=== PATIENT | female | born 1935 | race Caucasian/White ===

== ENCOUNTER 2017-04-06 10:43 | Outpatient (CLI) | payer MEDICARE | END 2017-04-06 10:44 | disposition home or self-care (01) | LOC: BICMAMMO 10:43 | PROVIDERS: ATTEND Internal Medicine Medical Oncology | DX: Z12.31 Encounter for screening mammogram for malignant neoplasm of breast (principal); Z13.820 Encounter for screening for osteoporosis; R92.1 Mammographic calcification found on diagnostic imaging of breast; M85.88 Other specified disorders of bone density and structure, other site; Z85.3 Personal history of malignant neoplasm of breast; Z80.3 Family history of malignant neoplasm of breast | CPT/HCPCS: 77063; 77067; 77080 ==

== ENCOUNTER 2018-04-12 14:12 | Outpatient (CLI) | payer MEDICARE ==
--- NOTE | 2018-04-12 15:57 | BD ---
DEXA BONE SCAN: HISTORY: Osteopenia. Age-related osteoporosis. FINDINGS: DEXA bone scan is performed using a hologic bone mineral density unit. Lumbar Spine: BMD (g/cm2) L1 0.89 T-Score: -0.9 Z-Score: 1.5 L2 0.89 T-Score: -1.2 Z-Score: 1.5 L3 0.97 T-Score: -1.0 Z-Score: 1.9 L4 0.92 T-Score: -1.3 Z-Score: 1.7 L1-L4 0.92 T-Score: -1.2 Z-Score: 1.7 Left Hip: Femoral Neck: 0.62 T-Score: -2.0 Z-Score: 0.4 Total Femur: 0.72 T-Score: -1.8 Z-Score: 0.5 Impression: 1. Findings compatible with osteopenia. The patient has a mild increased risk of osteoporotic fract ures. 2. The patient has a major osteoporotic fracture risk of 12% and hip fracture risk of 4% (FRAX score ). POS: [facility]
== END 2018-04-12 14:13 | disposition home or self-care (01) ==
LOC: BICMAMMO 14:12
PROVIDERS: ATTEND Internal Medicine Medical Oncology
DX: Z12.31 Encounter for screening mammogram for malignant neoplasm of breast (principal); M85.80 Other specified disorders of bone density and structure, unspecified site; N95.9 Unspecified menopausal and perimenopausal disorder; Z80.3 Family history of malignant neoplasm of breast; Z85.3 Personal history of malignant neoplasm of breast
CPT/HCPCS: 77063; 77067; 77080

== ENCOUNTER 2019-01-07 11:14 | Inpatient (IN) | payer MEDICARE ==
[2019-01-07 12:11] LABS: #Lymphocytes 0.5 thou/uL (1.20-3.40); #Monocytes 0.2 thou/uL (0.11-0.59); #Neutrophils 2.6 thou/uL (1.40-6.50); %Basophils 0.5 % (0.0-1.0); %Eosinophils 0.3 % (0.0-10.0); %Lymphocytes 13.9 % (21.0-51.0); %Monocytes 7.1 % (0.0-10.0); %Neutrophils 78.3 % (42.0-75.0); Hemoglobin 14.4 g/dL (12.0-16.0); MDiff Complete? YES; Mean Corpuscular Volume 84.8 fL (78.0-98.0); Mean Platelet Volume 8.4 fL (7.4-10.4); Platelet Count 89 thou/uL (130-400); Platelet Morphology Comment Appears Decreased; RBC Distribution Width 14.5 % (11.5-14.5); RBC Morphology Normal; Red Blood Cell (RBC) Count 5.15 mill/uL (4.20-5.40); Small Platelets SLIGHT; White Blood Cell (WBC) Count 3.4 thou/uL (4.8-10.8)
[2019-01-07 12:20] LABS: ALT (SGPT) 23 U/L (8-55); AST (SGOT) 43 U/L (5-34); Albumin 3.3 g/dL (3.4-4.8); Alkaline Phosphatase 73 U/L (40-110); Anion Gap 9 mmol/L (10-20); BUN (Urea Nitrogen) 15 mg/dL (9.8-20.1); Bilirubin, Total 0.5 mg/dL (0.2-1.2); Calc. Creatinine Clearance 0 mL/min (70-130); Calcium 8.1 mg/dL (7.8-10.44); Carbon Dioxide 24 mmol/L (23-31); Chloride 103 mmol/L (98-107); Estimated GFR-MDRD 87; Globulin 2.5 g/dL (2.4-3.5); Glucose 112 mg/dL (83-110); Potassium 3.4 mmol/L (3.5-5.1); Protein, Total 5.8 g/dL (6.0-8.3); Sodium 133 mmol/L (136-145)
[2019-01-07] MEDS ORDERED: Amiodarone 450 MG, Admixture Fee 1 EACH in Dextrose 5% in Water 250 ML IVPB SCH (12:30)
[2019-01-07] MEDS ORDERED: Amiodarone 150 MG, Admixture Fee 1 EACH in Dextrose 5% in Water 100 ML IVPB SCH (12:30)
[2019-01-07 12:41] LABS: INR-International Normal Ratio 1.2; PTT 34.6 SEC (22.9-36.1); Prothrombin Time 14.8 SEC (12.0-14.7)
--- NOTE | 2019-01-07 13:50 | RAD ---
CHEST 1 VIEW: Date: 01/07/19 HISTORY: Weakness, dizziness, generalized malaise. History of atrial fibrillation. COMPARISON: 08/03/13. FINDINGS: Heart size is within normal limits. Minimal increased markings noted bilaterally, particularly in the infrahilar regions. No confluent pneumonia. IMPRESSION: Minimal increased nonspecific markings in the lung bases, possibilities would include that of chronic change, minimal subsegmental atelectasis, or very minimal pneumonitis. No confluent pneumonia. Ather osclerosis of aorta. POS: [facility]
[2019-01-07 14:02] LABS: Bacteria/HPF None Seen HPF (None Seen); Bilirubin Negative (Negative); Blood, Urine 2+ (Negative); Clarity Clear (Clear); Glucose, Urine (Dipstick) Normal (Negative); Leukocyte Negative Leu/uL (Negative); Nitrite Negative (Negative); Protein, Urine (Dipstick) 50 mg/dL (Neg-Trace); Squamous Epithelial 0-3 HPF (0-3); Urobilinogen Normal mg/dL (Less than 2); WBC/HPF 0-3 HPF (0-3)
[2019-01-07] MEDS ORDERED: Vancomycin HCl 1.5 GM in Sodium Chloride 0.9% 250 ML 300 ML IVPB SCH (15:00)
[2019-01-07] MEDS ORDERED: Piperacillin/Tazobactam 4.5 GM VIAL ONE (15:06)
[2019-01-07] MEDS ORDERED: Sodium Chloride 0.9% 100 ML ONE (15:06)
--- NOTE | 2019-01-07 15:40 | PDOC.FPRHP ---
- History of Present Illness Chief Complaint: weakness, fever History of Present Illness: History provided by and patient. reports pt hasn't eaten since Monday and was feeling weak. This morning helped patient get out of bed and she collapsed to her knees due to weakness. Says she has been sweating profusely and felt feverish, no recorded temp. Pt says she has simply lost her appetite. Has been able to drink water. + lightheadedness at times, moreso w/ bending over and getting up quickly. + constipation chronically, + urinary incontinence chronically. No sick contacts. PCP: recently retired from [place], [place]. Sees health care sanitary technician Dr. Velasquez and neurologist for dementia. reports she has been having "bouts" of forgetfulness. ED Course: Vanc, zosyn, amiodarone gtt started. - Allergies/Adverse Reactions Allergies Allergy/AdvReac Type Severity Reaction Status Date / Time alprazolam Allergy Verified 08/04/13 01:08 hydrocodone Allergy Verified 08/04/13 01:08 valacyclovir HCl Allergy Verified 08/04/13 01:07 [From Valtrex] zolpidem [Zolpidem] Allergy Verified 08/04/13 01:08 - Home Medications Medication Instructions Recorded Confirmed Type Acetaminophen [Tylenol Regular 500 mg PO Q6H PRN 01/07/19 01/07/19 History Strength] Levothyroxine [Synthroid] 75 mcg PO DAILY 01/07/19 01/07/19 History Memantine HCl [Namenda] 10 mg PO BID 01/07/19 01/07/19 History Midodrine HCl 5 mg PO TID 01/07/19 01/07/19 History - History PMHx: - Hypothyroidism - Breast cancer - Hx of "kidney infection" requiring hospitalization - A-fib diagnosed 5 years ago PSHx: - L Mastectomy - R Hip fracture repair - Appendectomy - Cholecystectomy FHx: - Mother had breast cancer. Social: - . Lives w/ of 47 years and 1 son at home. - Never smoker. smokes. - Denies alcohol use. Denies drug use. - Review of Systems General: reports: fever/chills, weight/appetite/sleep changes (no appetite) ENT: denies: nasal congestion, rhinorrhea Respiratory: denies: cough, congestion, shortness of breath Cardiovascular: denies: chest pain, edema Gastrointestinal: reports: constipation, abdominal pain. denies: nausea, vomiting, diarrhea, GI bleeding Genitourinary: reports: incontinence (some urinary hesitancy). denies: dysuria , discharge Skin: denies: rashes, jaundice Musculoskeletal: denies: pain, swelling Neurological: reports: weakness - Vital signs BP: 102/74 HR: 79 RR: 24 Afebrile. Pox: 97% on RA - Physical Exam Constitutional: NAD, awake, alert and oriented HEENT: normocephalic and atraumatic, PERRLA, EOMI, conjunctiva clear, grossly normal vision, grossly normal hearing, normal nasal mucosa, MMM, oropharynx clear, good dention Neck: supple, trachea midline, no thyromegaly Heart: normal S1/S2, pulses present, other (irregular rhythm) Lungs: CTAB, no respiratory distress Abdomen: soft, non-tender, bowel sounds present, no masses/distention, no hernias Musculoskeletal: normal structure, normal tone, ROM grossly normal Neurological: no focal deficit, CN II-XII intact Skin: no rash/lesions, capillary refill <2 seconds, no jaundice Heme/Lymphatic: no unusual bruising or bleeding, no purpura, no petechia, no LAD Psychiatric: normal mood and affect, good judgment and insight FMR H&P: Results - Labs Result Diagrams: 01/08/19 05:01 01/08/19 05:01 Lab results: WBC 3.4 thou/uL (4.8-10.8) L 01/07/19 11:40 Hgb 14.4 g/dL (12.0-16.0) 01/07/19 11:40 Hct 43.7 % (36.0-47.0) 01/07/19 11:40 MCV 84.8 fL (78.0-98.0) 01/07/19 11:40 Plt Count 89 thou/uL (130-400) L 01/07/19 11:40 Neutrophils % 78.3 % (42.0-75.0) H 01/07/19 11:40 Sodium 133 mmol/L (136-145) L 01/07/19 11:40 Potassium 3.4 mmol/L (3.5-5.1) L 01/07/19 11:40 Chloride 103 mmol/L (98-107) 01/07/19 11:40 Carbon Dioxide 24 mmol/L (23-31) 01/07/19 11:40 BUN 15 mg/dL (9.8-20.1) 01/07/19 11:40 Creatinine 0.65 mg/dL (0.6-1.1) 01/07/19 11:40 Glucose 112 mg/dL (83-110) H 01/07/19 11:40 Lactic Acid 2.4 mmol/L (0.5-2.2) H 01/07/19 11:40 Calcium 8.1 mg/dL (7.8-10.44) 01/07/19 11:40 Total Bilirubin 0.5 mg/dL (0.2-1.2) 01/07/19 11:40 AST 43 U/L (5-34) H 01/07/19 11:40 ALT 23 U/L (8-55) 01/07/19 11:40 Alkaline Phosphatase 73 U/L (40-110) 01/07/19 11:40 Serum Total Protein 5.8 g/dL (6.0-8.3) L 01/07/19 11:40 Albumin 3.3 g/dL (3.4-4.8) L 01/07/19 11:40 Urine Ketones 20 mg/dL (Negative) A 01/07/19 13:40 Urine Blood 2+ (Negative) A 01/07/19 13:40 Urine Nitrite Negative (Negative) 01/07/19 13:40 Ur Leukocyte Esterase Negative Leonora/uL (Negative) 01/07/19 13:40 Urine RBC 7-10 HPF (0-3) A 01/07/19 13:40 Urine WBC 0-3 HPF (0-3) 01/07/19 13:40 Ur Squamous Epith Cells 0-3 HPF (0-3) 01/07/19 13:40 Urine Bacteria None Seen HPF (None Seen) 01/07/19 13:40 - Radiology Interpretation Chest x-ray Status: image reviewed by me, report reviewed by me (normal, minimal changes) FMR H&P: A/P - Problem List (1) Sepsis Current Visit: Yes Status: Acute Code(s): A41.9 - SEPSIS, UNSPECIFIED ORGANISM (2) Atrial fibrillation with RVR Current Visit: Yes Status: Acute Code(s): I48.91 - UNSPECIFIED ATRIAL FIBRILLATION (3) Hypothyroidism Current Visit: Yes Status: Acute Code(s): E03.9 - HYPOTHYROIDISM, UNSPECIFIED - Plan 83-year-old female w/ history of a-fib being admitted for: A-fib w/ RVR - consulted Felipe of cardiology, will see pt, appreciate recs - pt w/ history of a-fib diagnosed 5 years ago, not on any antiarrhythmics. Histological Illustrator Brenda recently stopped her eliquis. - Rate controlled on amiodarone drip - Monitor on telemetry SIRS, possibly 2/2 upper respiratory infection - Meets SIRS criteria w/ tachycardia and WBC of 3.4. However, her tachycardia could be the result of a-fib w/ RVR, or her a-fib w/ RVR could have been exacerbated by acute infection - CXR shows minimal possible pneumonitis vs atelectasis, no focal consolidation - We will cover her w/ zosyn. No particular concern for MRSA at this point in time. Dementia - Pt has started seeing neurology and seems to have slowly progressing dementia - Continue home memantine Chronic hypotension - pt takes midodrine at home Hypothyroidism - takes levothyroxine 75, continue - TSH low, ordered Free T4 Code: FULL Diet: HH VTE PPx: LVX GI pPx: none Dennise Chicas MD PGY1 Disposition/LOS: Admit to telemetry inpatient. FMR H&P: Upper Level - Plan Date/Time: 01/07/19 0528 PCP: JEANNETTE HPI: This 83 yo F comes in with chief complaint of malaise over the last 3 days. Her is with her and states she is acting about her normal except that she is not eating as much as usual. He has noted subjective fever and also chills over the last few days. Denies N/V/D. Denies cough or SOB. Patient was able to go dancing with over the weekend, was able to do 2 dances. Patient denies CP, SOB, or palpitations. PHYSICAL EXAMINATION: General: NAD, alert and oriented x3 HEENT: PERRLA, EOMI, normal sclera, oropharynx without erythema or exudate Neck: Supple. Full ROM. Heart/Cardiovascular System: RRR, Cap refill < 3 seconds, 2/6 systolic murmur Lungs/Respiratory System: clear to auscultation bilaterally. No increased work of breathing. Room air. Abdomen/Gastro-Intestinal System: no abdominal tenderness, normal bowel sounds, no masses, no organomegaly Extremities: Warm extremities. No cyanosis or edema. Neuro: No gross deficits appreciated. CN 2-12 grossly intact Psychiatry: Awake, Alert and cooperative with exam Skin: No lesions, rashes, or ulcers Musculoskeletal: Full ROM A/P: # Atrial Fibrillation with RVR - Tachycardic mostly in 120s upon arrival, charted to 160s - Currently rate controlled on amio drip, cardiology consulted, appreciate recs - Eliquis was stopped by primary health care sanitary technician - She is on midodrine but no other antiarrhytmics at home # Sepsis 2/2 suspected community acquired PNA - WBC 3.4, LA 2.4->1.0, tachycardic on presentation, subjective fever - Consider gastroenteritis - Denies cough, sob, burning/blood with urination, hx of multiple UTIs - Will check RVP, procal, bcx, ucx - Continue on zosyn for broad spectrum coverage # De-conditioning - PT/OT/rehab screen - Living at home with # Hypothyroidism - TSH currently 0.046, check free t4, could be contributing to afib Fluids: LR Code status: full PPx: Lovenox, SCD Dispo: 1-2 days Addendum - Attending - Attending Attestation Date/Time: 01/08/19 9424 I personally evaluated the patient and discussed the management with Dr. Chicas I agree with the History, Examination, Assessment and Plan documented above with any addition or exceptions noted below- 83 yo female with h/o breast cancer , A-fib, dementia, and hypothyroidism presented with weakness. reports pt hasn't eaten since Monday and was feeling weak. This morning helped patient get out of bed and she collapsed to her knees due to weakness. Says she has been sweating profusely and felt feverish, no recorded temp. Pt says she has simply lost her appetite. Has been able to drink water. + lightheadedness at times, + constipation chronically, + urinary incontinence chronically. No sick contacts. No N/V/D. PMH/PSH/Meds/SH reviewed and agree with resident's documentation. Afebrile P80-103 BP 120/88 RR17 Exam repeated by me and agree with resident's findings. Labs: WBC=3.4, H/H=14.4/43.7, Plt=89, Qa=565, K=3.4, Jt=021, CO2=24, BUN/Cr=15/0.65, Gbdc=365, Trop I<0.010, AST/ALT=43/23, U/A (+) blood, no leukos, no bacteria. A/P: 1) A-fib with RVR- on amiodarone drip with improved HR. admit to tele and continue drip for now. Will check echo. 2) SIRS - blood and urine cultures pending; continue abx for now 3) Hypothyroidism- check TSH and continue home meds. 4) Dementia- continue home emds.
[2019-01-07] MEDS ORDERED: Acetaminophen 650 MG Suppository PR PRN (16:25)
[2019-01-07] MEDS ORDERED: Ondansetron ODT 4 MG TAB PO PRN (16:25)
[2019-01-07] MEDS ORDERED: Ondansetron PF 4 MG/2 ML Vial IVP PRN (16:25)
[2019-01-07] MEDS: Midodrine HCl 5 MG TAB PO SCH (21:59)
[2019-01-07] MEDS: Piperacillin/Tazobactam 3.375 GM in Sodium Chloride 0.9% 100 ML IVPB SCH (21:59)
--- NOTE | 2019-01-07 22:05 | CON ---
DATE OF CONSULTATION: HISTORY OF PRESENT ILLNESS: Marianne Bailey is an 83-year-old white female, who has a history of atrial flutter which developed postoperatively after she had repair of right hip fracture after a fall. She underwent radiofrequency ablation of her atrial flutter. It was also noted that she had left atrial flutter as well. She was placed on Rythmol and saw Dr. Urbina in the office once for followup, but has never returned. This was in 2013. She apparently now follows up with Dr. Gutierrez, vice president education in [place]. There is somewhat conflicting stories that I have available from the patient as well as from the medical record. Apparently, the patient has dementia and states that she fell while trying to go up the steps. Her gave the history that she tried to get out of bed and fell to her knees. She felt feverish, was sweating , and brought to the emergency room. She was found to be in atrial fibrillation with fast ventricular response and was admitted for sepsis rule out. She denies any chest discomfort or shortness of breath. The patient states she was on Eliquis until 1 month ago and then it was stopped, however, she is uncertain why. PAST MEDICAL HISTORY: Atrial fibrillation, hypothyroidism, breast cancer. PAST SURGICAL HISTORY: Radiofrequency ablation of typical atrial flutter, left mastectomy, right hip ORIF, appendectomy, and cholecystectomy. MEDICATIONS: 1. Synthroid 75 mcg daily. 2. Namenda 10 mg b.i.d. 3. Midrin 5 mg t.i.d. ALLERGIES: HYDROCODONE, ALPRAZOLAM, ZOLPIDEM, AND VALTREX. SOCIAL HISTORY: She does not smoke, her does. She does not drink. REVIEW OF SYSTEMS: Somewhat unreliable with her dementia. PHYSICAL EXAMINATION: VITAL SIGNS: Blood pressure 135/56, pulse is 69. HEENT: PERRL. NECK: Supple. CHEST: Clear. CARDIAC: S1 and S2 normal without any S3, S4, murmurs, or rubs. ABDOMEN: Normal bowel sounds without tenderness or organomegaly. EXTREMITIES: Revealed no clubbing, cyanosis, or edema. NEUROLOGICAL: Intact except for her dementia. LABORATORY DATA: EKG reveals atrial fibrillation with rapid ventricular response of 142 per minute. CBC is unremarkable except for platelet count of 89,000, white count of 3400. TSH 0.468, free T4 is somewhat elevated at 1.65. Troponin I is normal. Sodium 133, potassium 3.4, chloride 103, carbon dioxide 24, BUN 15, creatinine 0.65. Urinalysis reveals 0-3 wbc's, no bacteria. IMPRESSION: 1. Atrial fibrillation with fast ventricular response. It is unclear if she has paroxysmal atrial fibrillation or chronic atrial fibrillation. The patient states she does not think she had atrial fibrillation all the time. Approximately 1 month ago, Eliquis of unknown dose was discontinued. 2. History of atrial flutter ablation in 2003. 3. Hypothyroidism, possibly over replaced at this time. 4. Possible sepsis syndrome. 5. Dementia. PLAN: The patient currently is on amiodarone drip and has been started on vancomycin and Zosyn. Echocardiogram will be performed to assess left ventricular function. Hopefully, the can offer more insight tomorrow. Job ID: [id number] MTDD
[2019-01-08] MEDS: Piperacillin/Tazobactam 3.375 GM in Sodium Chloride 0.9% 100 ML IVPB SCH ×4 (04:22→20:31)
[2019-01-08 05:27] LABS: Anion Gap 13 mmol/L (10-20); BUN (Urea Nitrogen) 14 mg/dL (9.8-20.1); Calc. Creatinine Clearance 57 mL/min (70-130); Carbon Dioxide 20 mmol/L (23-31); Chloride 101 mmol/L (98-107); Estimated GFR-MDRD 85; Glucose 102 mg/dL (83-110); Potassium 3.2 mmol/L (3.5-5.1); Sodium 131 mmol/L (136-145)
[2019-01-08] MEDS ORDERED: Levothyroxine Sodium 75 MCG TAB PO SCH (06:00)
[2019-01-08 06:08] LABS: Band 42 % (5-11); Hemoglobin 14.4 g/dL (12.0-16.0); Lymphocytes 16 % (21-51); MDiff Complete? YES; Mean Corpuscular HGB CONC 34.7 g/dL (32.0-36.0); Mean Corpuscular Hemoglobin 29.1 pg (27.0-31.0); Mean Corpuscular Volume 83.8 fL (78.0-98.0); Mean Platelet Volume 10.1 fL (7.4-10.4); Monocytes 5 % (0-10); Myelocyte 1 % (0-0); Neutrophil 35 % (42-75); Platelet Count 53 thou/uL (130-400); Platelet Morphology Comment Appears Decreased; RBC Distribution Width 14.5 % (11.5-14.5); Reactive Lymphocytes 1 % (0-10); Red Blood Cell (RBC) Count 4.96 mill/uL (4.20-5.40); White Blood Cell (WBC) Count 3.1 thou/uL (4.8-10.8)
--- NOTE | 2019-01-08 06:38 | PDOC.FM ---
- Subjective Subjective: Pt doing well this morning. Denies pain. Denies SOB. Does not remember much from yesterday. - Objective MAR Reviewed: Yes Vital Signs & Weight: Vital Signs (12 hours) Temp Pulse Resp BP Pulse Ox 01/08/19 03:18 100.2 F H 77 18 153/75 H 95 01/07/19 23:57 99.3 F 80 18 143/67 H 98 01/07/19 20:01 98 01/07/19 19:57 99.1 F 80 18 137/74 98 Weight Weight 56.971 kg I&O: 01/06/19 01/07/19 01/08/19 06:59 06:59 06:59 Intake Total 1215 Output Total 450 Balance 765 Result Diagrams: 01/08/19 05:01 01/08/19 05:01 Phys Exam - Physical Examination Constitutional: NAD Respiratory: no wheezing, clear to auscultation bilateral Cardiovascular: RRR, no significant murmur, no rub Gastrointestinal: soft, non-tender, no distention, positive bowel sounds Musculoskeletal: no edema, pulses present Psychiatric: normal affect (AxO x1) Skin: no rash, normal turgor Dx/Plan (1) Sepsis Code(s): A41.9 - SEPSIS, UNSPECIFIED ORGANISM Status: Acute (2) Atrial fibrillation with RVR Code(s): I48.91 - UNSPECIFIED ATRIAL FIBRILLATION Status: Acute (3) Hypothyroidism Code(s): E03.9 - HYPOTHYROIDISM, UNSPECIFIED Status: Acute - Plan Plan: 83-year-old female w/ history of a-fib being admitted for: A-fib w/ RVR - Pt has history of a-flutter s/p RF ablation approx 5 years ago - consulted Felipe of cardiology, appreciate recs - ECHO today per Cardiology - pt w/ history of a-fib diagnosed 5 years ago, not on any antiarrhythmics. Exerciser Horse Brenda recently stopped her eliquis. - Rate controlled on amiodarone drip, now in sinus rhythm. - Monitor on telemetry - ECHO today SIRS, possibly 2/2 upper respiratory infection - Meets SIRS criteria w/ tachycardia and WBC of 3.4. However, her tachycardia could be the result of a-fib w/ RVR, or her a-fib w/ RVR could have been exacerbated by acute infection - CXR shows minimal possible pneumonitis vs atelectasis, no focal consolidation - We will cover her w/ zosyn. No particular concern for MRSA at this point in time. Leukopenia Thrombocytopenia - likely 2/2 to infection, will continue to monitor Hypokalemia Hyponatremia - replaced potassium, monitor Dementia - Pt has started seeing neurology and seems to have slowly progressing dementia - Continue home memantine Chronic hypotension - pt takes midodrine at home Hypothyroidism - takes levothyroxine 75- hold for minimum of 5 days - TSH low, ordered Free T4 Code: FULL Diet: HH VTE PPx: LVX GI pPx: none Dennise Chicas MD PGY1
[2019-01-08] MEDS ORDERED: Potassium Chloride 20 MEQ TAB PO SCH (06:45)
[2019-01-08] MEDS: Enoxaparin Sodium 40 MG/0.4 ML SYRINGE SC SCH (09:58)
[2019-01-08] MEDS: Midodrine HCl 5 MG TAB PO SCH ×3 (10:07→20:31)
--- NOTE | 2019-01-08 10:35 | PDOC.EVN ---
Event Note - Event Note Event Note: held synthroid states that sometimes patient may take extra of her thyroid medicine Discussed locking meds and hyperthyroidism as potential source for afib
[2019-01-08] MEDS: Acetaminophen 325 MG TAB PO PRN (11:44)
--- NOTE | 2019-01-08 12:03 | PRG ---
DATE OF SERVICE: 01/08/2019 Ms. Bailey is a pleasant 83-year-old lady, who was admitted with atrial fibrillation and rapid ventricular response necessitating an amiodarone drip. She is also on Synthroid for hypothyroidism and her TSH was noted to be very suppressed at 0.0468 with a slight elevation of her free T4 to 1.65. I believe the TSH is overly suppressed and this likely at least contributed to her episode of atrial fibrillation and RVR. I would recommend that we hold the Synthroid medication for at least several days. I would treat her to a TSH of between 4 and 5 to hopefully prevent any further precipitants of atrial fibrillation and RVR. Job ID: [id number]
[2019-01-08] MEDS: Dronedarone HCl 400 MG TAB PO SCH (17:58)
[2019-01-09] MEDS ORDERED: Sodium Chloride 0.9% 20 ML ONE (03:53)
[2019-01-09] MEDS: Piperacillin/Tazobactam 3.375 GM in Sodium Chloride 0.9% 100 ML IVPB SCH ×2 (04:01→08:54)
[2019-01-09] MEDS: Acetaminophen 325 MG TAB PO PRN (04:01)
[2019-01-09 05:22] LABS: Anion Gap 13 mmol/L (10-20); BUN (Urea Nitrogen) 11 mg/dL (9.8-20.1); Calc. Creatinine Clearance 62 mL/min (70-130); Calcium 7.8 mg/dL (7.8-10.44); Carbon Dioxide 21 mmol/L (23-31); Chloride 102 mmol/L (98-107); Estimated GFR-MDRD Greater than 90; Glucose 93 mg/dL (83-110); Magnesium 1.7 mg/dL (1.6-2.6); Potassium 3.1 mmol/L (3.5-5.1); Sodium 133 mmol/L (136-145)
[2019-01-09 05:37] LABS: Anisocytosis SLIGHT = 6-15 cells (100X) (0-5/hpf); Band 32 % (5-11); Lymphocytes 14 % (21-51); MDiff Complete? YES; Mean Corpuscular Hemoglobin 28.3 pg (27.0-31.0); Mean Corpuscular Volume 85.9 fL (78.0-98.0); Mean Platelet Volume 11.5 fL (7.4-10.4); Monocytes 2 % (0-10); Neutrophil 50 % (42-75); Platelet Count 55 thou/uL (130-400); Platelet Morphology Comment Appears Decreased; RBC Distribution Width 14.6 % (11.5-14.5); Reactive Lymphocytes 2 % (0-10); Red Blood Cell (RBC) Count 4.96 mill/uL (4.20-5.40); White Blood Cell (WBC) Count 2.5 thou/uL (4.8-10.8)
--- NOTE | 2019-01-09 08:19 | PDOC.FM ---
- Subjective Subjective: Pt is feeling well this morning. Says she was taking a "little cat nap." Denies pain. Typically she reports negative ROS, she again denies all problems this AM. Tmax overnight 102.3 F. - Objective MAR Reviewed: Yes Vital Signs & Weight: Vital Signs (12 hours) Temp Pulse Resp BP Pulse Ox 01/09/19 08:00 97.8 F 85 17 118/60 96 01/09/19 04:00 102.3 F H 86 20 135/66 95 01/09/19 00:00 18 Weight Admit Weight 56.971 kg Weight 56.563 kg I&O: 01/08/19 01/09/19 01/10/19 06:59 06:59 06:59 Intake Total 1215 450 340 Output Total 450 600 250 Balance 765 -150 90 Result Diagrams: 01/09/19 04:25 01/09/19 04:25 Phys Exam - Physical Examination Constitutional: NAD Respiratory: no wheezing, clear to auscultation bilateral Cardiovascular: RRR (murmur heard) Gastrointestinal: soft, non-tender, no distention Musculoskeletal: no edema Neurological: non-focal Skin: no rash Dx/Plan (1) Sepsis Code(s): A41.9 - SEPSIS, UNSPECIFIED ORGANISM Status: Acute (2) Atrial fibrillation with RVR Code(s): I48.91 - UNSPECIFIED ATRIAL FIBRILLATION Status: Acute (3) Hypothyroidism Code(s): E03.9 - HYPOTHYROIDISM, UNSPECIFIED Status: Acute - Plan Plan: 83-year-old female w/ history of a-fib being admitted for: A-fib w/ RVR, now converted to Sinus rhythm - Pt has history of a-flutter s/p RF ablation approx 5 years ago - consulted Felipe of cardiology, appreciate recs - ECHO: EF 50-55%, E/A reversal indicative of diastolic dysfunction, mild MR w/ annular calcification, sclerotic aortic valve, mild AR, mild TR - Amiodarone gtt stopped. Multaq 400mg bid-wm per cardiology - Monitor on telemetry, currently in sinus rhythm SIRS - RVP neg - Urine Cx: NGTD. UA w/ proteinuria, hematuria, and ketones. - Blood Cx: NGTD - Meets SIRS criteria w/ tachycardia and WBC of 3.4. However, her tachycardia could be the result of a-fib w/ RVR, or her a-fib w/ RVR could have been exacerbated by acute infection - CXR shows minimal possible pneumonitis vs atelectasis, no focal consolidation - Continue zosyn. No particular concern for MRSA at this point in time. However , pt continues to have fever up to 102.3 F. Leukopenia Thrombocytopenia - likely 2/2 to infection, will continue to monitor - worsening - Ordered peripheral smear. Consider bone marrow suppression, hematologic malignancy, immunosuppresion, occult infection. Hypokalemia Hyponatremia - replaced potassium, monitor Dementia - Pt has started seeing neurology and seems to have slowly progressing dementia - Continue home memantine Chronic hypotension - pt takes midodrine at home Hypothyroidism - takes levothyroxine 75- hold for minimum of 5 days - TSH low, free T4 high - This certainly could have exacerbated her heart and caused her to have a-fib. Code: FULL Diet: Regular, Ensure enlive BID per bandsaw operator VTE PPx: LVX GI pPx: none Dennise Chicas MD PGY1
[2019-01-09] MEDS ORDERED: Potassium Chloride 20 MEQ in Premix Bag 1 BAG IVPB SCH (08:45)
[2019-01-09] MEDS: Enoxaparin Sodium 40 MG/0.4 ML SYRINGE SC SCH (08:55)
[2019-01-09] MEDS: Dronedarone HCl 400 MG TAB PO SCH ×2 (08:55→17:05)
[2019-01-09] MEDS: Midodrine HCl 5 MG TAB PO SCH ×3 (08:55→20:48)
[2019-01-09] MEDS ORDERED: FLU VACC TS2019-20(65YR UP)/PF 180 MCG/0.5 ML SYRINGE IM ONE (09:00)
[2019-01-09] MEDS: Doxycycline 100 MG CAP PO SCH ×2 (09:37→20:48)
--- NOTE | 2019-01-09 10:06 | RAD ---
PORTABLE CHEST: Date: 01/09/19 HISTORY: Follow-up atelectasis. COMPARISON: 01/07/19. FINDINGS: Blunting of left CP angle may represent small effusion. There is residual left basilar atelectasis. L ungs otherwise appear clear and unchanged. Heart and mediastinum unremarkable. IMPRESSION: Blunting left CP angle and left basilar opacity continues to suggest mild left basilar atelectasis an d possibly small effusion. POS: [facility]
[2019-01-09 10:23] LABS: Reticulocyte Count 0.5 % (0.5-1.5)
[2019-01-09 11:53] LABS: HBCM Index 0.04 S/CO (0-0.79); HBSAg Index 0.19 S/CO (0-0.99); HIV (1/2) Antibody/Antigen Non-Reactive (NonReactive); HIV 1/2 INDEX 0.08 S/CO (<1.00); Hep A IgM AB Non-Reactive (NonReactive); Hep A IgM S/CO 0.34 S/CO (0-0.79); Hep B Surf Ag Non-Reactive S/CO (NonReactive); Hep C IgG Ab Non-Reactive (NonReactive); Hep C Index 0.29 S/CO (0-0.79); Hepatitis B Core IgM Abs Non-Reactive (NonReactive)
[2019-01-09] MEDS ORDERED: PHOS-NAK 1 PKT PACK PO SCH (12:00)
--- NOTE | 2019-01-09 12:54 | PRG ---
DATE OF SERVICE: 01/09/2019 SUBJECTIVE: Ms. Bailey is sitting in bed quietly and is absolutely in no distress. I am concerned, however, that she has developed a bandemia and a fever last night. She also continues to exhibit a drop in her platelet count now down to 55,000. She is on antibiotics, and her cultures so far are negative. Her chest x-ray is clear. We will also ask Hem-Onc for an opinion regarding her persistent thrombocytopenia, which she had upon admission to the hospital. In the event, clinically, she is stable and in no distress. Job ID: [id number]
--- NOTE | 2019-01-10 05:30 | PDOC.FM ---
- Subjective Subjective: Low temp 96.5 F overnight. No high temps. Pt is feeling good and has no complaints. She and her wonder when they can go home. Talked w/ yesterday evening about diagnosis since his children were asking. Also discussed inpatient rehab with them and they think that could be helpful. - Objective MAR Reviewed: Yes Vital Signs & Weight: Vital Signs (12 hours) Temp Pulse Resp BP Pulse Ox 01/10/19 04:00 98.0 F 68 20 158/70 H 97 01/10/19 00:00 20 01/09/19 20:00 97.8 F 76 20 114/61 97 Weight Admit Weight 56.971 kg Weight 56.608 kg I&O: 01/08/19 01/09/19 01/10/19 06:59 06:59 06:59 Intake Total 1215 450 340 Output Total 450 600 250 Balance 765 -150 90 Result Diagrams: 01/10/19 04:44 01/10/19 04:44 Radiology Reviewed by me: Yes (CXR stable compared to prior) Phys Exam - Physical Examination Constitutional: NAD Respiratory: no wheezing, clear to auscultation bilateral Cardiovascular: RRR, no significant murmur, no rub Gastrointestinal: soft, non-tender, no distention Musculoskeletal: no edema Skin: no rash Dx/Plan (1) Sepsis Code(s): A41.9 - SEPSIS, UNSPECIFIED ORGANISM Status: Acute (2) Atrial fibrillation with RVR Code(s): I48.91 - UNSPECIFIED ATRIAL FIBRILLATION Status: Acute (3) Hypothyroidism Code(s): E03.9 - HYPOTHYROIDISM, UNSPECIFIED Status: Acute (4) Leukopenia Code(s): D72.819 - DECREASED WHITE BLOOD CELL COUNT, UNSPECIFIED Status: Acute (5) Thrombocytopenia Code(s): D69.6 - THROMBOCYTOPENIA, UNSPECIFIED Status: Acute - Plan Plan: 83-year-old female w/ history of a-fib being admitted for: A-fib w/ RVR, now converted to Sinus rhythm - Pt has history of a-flutter s/p RF ablation approx 5 years ago - consulted Felipe of cardiology, appreciate recs - ECHO: EF 50-55%, E/A reversal indicative of diastolic dysfunction, mild MR w/ annular calcification, sclerotic aortic valve, mild AR, mild TR - Amiodarone gtt stopped. Multaq 400mg bid-wm per cardiology - Monitor on telemetry, currently in sinus rhythm - F/u w/ cardiology outpatient. SIRS - RVP neg - Urine Cx: NGTD. UA w/ proteinuria, hematuria, and ketones. - Blood Cx: NGTD - Meets SIRS criteria w/ tachycardia and WBC of 3.4. However, her tachycardia could be the result of a-fib w/ RVR, or her a-fib w/ RVR could have been exacerbated by acute infection - Repeat CXR showed minimal interval change. - Pt abx broadened to doxycycline to cover for atypical organisms and gram positives. Leukopenia Thrombocytopenia - likely 2/2 to infection, will continue to monitor - Peripheral smear showing thrombocytopenia and absolute neutropenia. Consider bone marrow suppression such as Myelodysplastic syndrome, splenic sequestration , hematologic malignancy, immunosuppresion, occult infection, malnutrition. - LDH high, uric acid low, reticulocyte count normal, CRP high at 14, ESR 1 - HIV, hep A/B/C negative - Hem/Onc ([facility]) consulted, appreciate recs - Improving today after initiation of doxycycline. No fever overnight Hypokalemia Hyponatremia - replaced potassium, monitor - will likely discharge on oral potassium supplementation Dementia - Pt has started seeing neurology and seems to have slowly progressing dementia - Continue home memantine Chronic hypotension - pt takes midodrine at home Hypothyroidism - takes levothyroxine 75- hold for minimum of 5 days - TSH low, free T4 high - This certainly could have exacerbated her heart and caused her to have a-fib. Code: FULL Diet: Regular, Ensure enlive BID per senior premium auditor VTE PPx: LVX GI pPx: none Dennise Chicas MD PGY1
[2019-01-10 05:38] LABS: Band 27 % (5-11); Hemoglobin 14.4 g/dL (12.0-16.0); Lymphocytes 25 % (21-51); MDiff Complete? YES; Mean Corpuscular HGB CONC 31.9 g/dL (32.0-36.0); Mean Corpuscular Hemoglobin 27.8 pg (27.0-31.0); Mean Platelet Volume 11.5 fL (7.4-10.4); Monocytes 7 % (0-10); Neutrophil 39 % (42-75); Platelet Count 63 thou/uL (130-400); Platelet Morphology Comment Appears Decreased; RBC Distribution Width 14.8 % (11.5-14.5); Reactive Lymphocytes 2 % (0-10); White Blood Cell (WBC) Count 4.5 thou/uL (4.8-10.8)
[2019-01-10 05:46] LABS: Anion Gap 14 mmol/L (10-20); BUN (Urea Nitrogen) 15 mg/dL (9.8-20.1); Calc. Creatinine Clearance 59 mL/min (70-130); Calcium 8.1 mg/dL (7.8-10.44); Carbon Dioxide 22 mmol/L (23-31); Chloride 99 mmol/L (98-107); Estimated GFR-MDRD 90; Glucose 82 mg/dL (83-110); Magnesium 1.8 mg/dL (1.6-2.6); Phosphorus 2.4 mg/dL (2.3-4.7); Potassium 3.2 mmol/L (3.5-5.1); Sodium 132 mmol/L (136-145)
[2019-01-10] MEDS: Enoxaparin Sodium 40 MG/0.4 ML SYRINGE SC SCH (08:09)
[2019-01-10] MEDS: Doxycycline 100 MG CAP PO SCH ×2 (09:37→20:16)
[2019-01-10] MEDS: Potassium Chloride 20 MEQ TAB PO SCH (09:37)
[2019-01-10] MEDS: Dronedarone HCl 400 MG TAB PO SCH ×2 (09:37→16:06)
[2019-01-10] MEDS: Midodrine HCl 5 MG TAB PO SCH ×3 (09:37→20:16)
--- NOTE | 2019-01-10 12:04 | PRG ---
DATE OF SERVICE: Ms. Bailey is feeling fine this morning. Sitting in bed, very talkative. Her blood work still shows thrombocytopenia and leukopenia. Her sedimentation rate came back elevated at 14.16. We still have no explanation for her thrombocytopenia, leukopenia, and bandemia. We have consulted Heme/Onc and we will await their recommendations. Job ID: [id number]
--- NOTE | 2019-01-10 12:38 | CON ---
DATE OF CONSULTATION: REASON FOR CONSULT: Leukopenia and thrombocytopenia. HISTORY OF PRESENT ILLNESS: The patient is an 83-year-old female with past medical history of stage I breast cancer, status post mastectomy, who presented to the emergency room after a several day episode of weakness and fever. Her white count on arrival was 3.4. She was tachycardic. She was admitted for sepsis. She has had blood cultures and nasal swab drawn, all have been negative. She has been treated with Zosyn. She does have a history of atrial fibrillation with RVR and has seen Dr. Wang. She was briefly on amiodarone drip. Heart rate is now stable. Through the course of her hospitalization, her WBCs dropped to a low of 2.5. Her platelet count on arrival was 89,000, they also dropped to a low of 53,000. The patient has no history of thrombocytopenia or leukopenia. She is seen by Dr. Benites annually for osteoporosis and breast cancer. She was last seen by our clinic in April. Her CBC at that time showed a white count of 6.5, hemoglobin of 13.3, and a platelet count of 141,000. The patient denies any complaints at this time. She does have a history of dementia and is pleasant, but slightly disoriented. There is no family at bedside. PAST MEDICAL HISTORY: 1. 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 2. Osteoporosis. 3. Hypothyroidism. 4. Atrial fibrillation with RVR. 5. Dementia. PAST SURGICAL HISTORY: 1. Left mastectomy. 2. Hysterectomy with bilateral salpingo-oophorectomy. 3. Cholecystectomy. 4. Tonsillectomy, hip fracture repair, and cataract surgery. ALLERGIES: ALPRAZOLAM, HYDROCODONE, VALACYCLOVIR, AND ZOLPIDEM. HOME MEDICATIONS: 1. Tylenol. 2. Synthroid. 3. Namenda. 4. Midodrine. FAMILY HISTORY: Extensive history of breast cancer in her family on her mother side. Her father has a history of Hodgkin disease. SOCIAL HISTORY: She is , lives with her spouse. No alcohol, tobacco, or illicit drug use. REVIEW OF SYSTEMS: A 10-point review of systems is negative. PHYSICAL EXAMINATION: VITAL SIGNS: Temperature is 97.8, pulse is 73, respiratory rate 18, BP is 129/65. She is 99% on room air. GENERAL: This is a well-developed, well-nourished female, in no acute distress. HEENT: Normocephalic and atraumatic. Pupils are equal and reactive to light. NECK: Supple. CV: Regular rate and rhythm. LUNGS: Clear. ABDOMEN: Soft and nontender. Bowel sounds are positive. EXTREMITIES: No clubbing or cyanosis. SKIN: No rash. HEMATOLOGICAL: No petechiae or purpura. NEUROLOGICAL: She is alert, mildly confused secondary to her dementia. BREASTS: Left breast surgically removed. Right breast, no masses or skin changes. PERTINENT LABS AND X-RAYS: Current WBCs are 4.5, hemoglobin 14.4, hematocrit 45.3, platelet count is 63,000. She has 39% neutrophils, 27% bands, and 25% lymphocytes. Peripheral smear shows thrombocytopenia and absolute neutropenia dated yesterday. PT is 14.8, INR is 1.2, PTT is 34.6. Sodium is 132, potassium 3.2, chloride 99, CO2 is 22, BUN is 15, creatinine is 0.63, uric acid is less than 2, calcium 8.1, phosphorus 2.4, magnesium 1.8. LDH is 463. C-reactive protein is 14.16, bilirubin 0.5, AST is 43, ALT is 23, alkaline phosphatase is 73. Serum total protein 5.8, albumin 3.3, globulin 2.4. Urine is negative for bacteria. Hepatitis and HIV screen are negative. Chest x-ray shows mild left basilar atelectasis. ASSESSMENT: 1. Febrile illness, unknown origin, possibly viral. 2. Thrombocytopenia and leukopenia, likely secondary to infection. DISCUSSION: The patient has no history of leukopenia or thrombocytopenia, they were mildly low prior to admission and reached their silvestre yesterday, both have started to recover with white count returning to a normal value. I do think there will be any further workup in the acute setting. Would continue symptomatic treatment of her infection and repeat a CBC in a couple of weeks once all symptoms have resolved. She can see Dr. Benites in early January and we will be happy to check her labs at that time. Thank you for the consult on this very nice lady. Job ID: [id number]
[2019-01-11 05:03] LABS: Anion Gap 10 mmol/L (10-20); BUN (Urea Nitrogen) 14 mg/dL (9.8-20.1); Calc. Creatinine Clearance 67 mL/min (70-130); Calcium 8.3 mg/dL (7.8-10.44); Carbon Dioxide 26 mmol/L (23-31); Chloride 102 mmol/L (98-107); Estimated GFR-MDRD Greater than 90; Glucose 90 mg/dL (83-110); Potassium 3.4 mmol/L (3.5-5.1); Sodium 135 mmol/L (136-145)
[2019-01-11 05:10] LABS: Band 6 % (5-11); Hemoglobin 13.1 g/dL (12.0-16.0); Lymphocytes 40 % (21-51); MDiff Complete? YES; Mean Corpuscular HGB CONC 32.9 g/dL (32.0-36.0); Mean Corpuscular Hemoglobin 28.4 pg (27.0-31.0); Mean Corpuscular Volume 86.2 fL (78.0-98.0); Mean Platelet Volume 10.4 fL (7.4-10.4); Monocytes 14 % (0-10); Neutrophil 39 % (42-75); Platelet Count 82 thou/uL (130-400); Platelet Morphology Comment Appears Decreased; RBC Distribution Width 14.8 % (11.5-14.5); Red Blood Cell (RBC) Count 4.61 mill/uL (4.20-5.40); White Blood Cell (WBC) Count 5.3 thou/uL (4.8-10.8)
--- NOTE | 2019-01-11 06:26 | PDOC.FM ---
- Subjective Subjective: Pt is feeling well this morning and sleeping soundly. Woke her up and she told me she "messed herself" last night and stool was dark. This was verified w/ nurse that pt had loose bowel movement and had to be cleaned overnight. No blood or anything of concern was noted in the stool. Pt was concerned w/ this because she is normally constipated. Otherwise, pt has no concerns. - Objective MAR Reviewed: Yes Vital Signs & Weight: Vital Signs (12 hours) Temp Pulse Resp BP Pulse Ox 01/11/19 03:00 98.1 F 75 18 135/64 95 01/10/19 23:20 61 127/61 01/10/19 20:14 98.2 F 66 18 129/67 94 L Weight Admit Weight 56.971 kg Weight 56.608 kg I&O: 01/09/19 01/10/19 01/11/19 06:59 06:59 06:59 Intake Total 216 767 0508 Output Total 600 250 300 Balance -597 08 9235 Result Diagrams: 01/11/19 04:31 01/11/19 04:31 Phys Exam - Physical Examination Constitutional: NAD Respiratory: no wheezing, clear to auscultation bilateral Cardiovascular: RRR, no significant murmur (sinus rhythm per telemetry) Gastrointestinal: soft, non-tender, no distention, positive bowel sounds Neurological: non-focal Psychiatric: normal affect Skin: no rash Dx/Plan (1) Sepsis Code(s): A41.9 - SEPSIS, UNSPECIFIED ORGANISM Status: Acute (2) Atrial fibrillation with RVR Code(s): I48.91 - UNSPECIFIED ATRIAL FIBRILLATION Status: Acute (3) Hypothyroidism Code(s): E03.9 - HYPOTHYROIDISM, UNSPECIFIED Status: Acute (4) Leukopenia Code(s): D72.819 - DECREASED WHITE BLOOD CELL COUNT, UNSPECIFIED Status: Acute (5) Thrombocytopenia Code(s): D69.6 - THROMBOCYTOPENIA, UNSPECIFIED Status: Acute - Plan Plan: 83-year-old female w/ history of a-fib being admitted for: A-fib w/ RVR, now converted to Sinus rhythm - Pt has history of a-flutter s/p RF ablation approx 5 years ago - consulted Felipe of cardiology, appreciate recs - ECHO: EF 50-55%, E/A reversal indicative of diastolic dysfunction, mild MR w/ annular calcification, sclerotic aortic valve, mild AR, mild TR - Amiodarone gtt stopped. Multaq 400mg bid-wm per cardiology. Will d/c on multaq. - Monitor on telemetry, currently in sinus rhythm - F/u w/ cardiology outpatient. SIRS - RVP neg - Urine Cx: NGTD. UA w/ proteinuria, hematuria, and ketones. - Blood Cx: NGTD - Pt abx broadened to doxycycline to cover for atypical organisms and gram positives. Leukopenia, improving Thrombocytopenia, improving - likely 2/2 to infection, will continue to monitor - Peripheral smear showing thrombocytopenia and absolute neutropenia. Consider bone marrow suppression such as Myelodysplastic syndrome, splenic sequestration , hematologic malignancy, immunosuppresion, occult infection, malnutrition. - LDH high, uric acid low, reticulocyte count normal, CRP high at 14, ESR 1 - HIV, hep A/B/C negative - Hem/Onc (Tavo) consulted, appreciate recs. Okay to d/c and follow up w/ repeat CBC in 2-3 weeks - Improving today after initiation of doxycycline. No fever overnight. Will d/c on doxycycline. Hypokalemia Hyponatremia - replaced potassium, monitor - will likely discharge on oral potassium supplementation for 2 weeks. Recheck BMP w/ CBC in 2-3 weeks. Dementia - Pt has started seeing neurology and seems to have slowly progressing dementia - Continue home memantine Chronic hypotension - pt takes midodrine at home Hypothyroidism - takes levothyroxine, Hold until f/u w/ PCP and recheck TSH and free T4 with other labs - TSH low, free T4 high - This certainly could have exacerbated her heart and caused her to have a-fib. Code: FULL Diet: Regular, Ensure enlive BID per decision support manager VTE PPx: LVX GI pPx: none Dispo: inpatient tele. Pending insurance auth for placement at [facility] for rehab. Facility has accepted pt. Dennise Chicas MD PGY1
[2019-01-11] MEDS: Midodrine HCl 5 MG TAB PO SCH ×3 (09:54→22:19)
[2019-01-11] MEDS: Doxycycline 100 MG CAP PO SCH ×2 (09:54→22:19)
[2019-01-11] MEDS: Enoxaparin Sodium 40 MG/0.4 ML SYRINGE SC SCH (09:54)
[2019-01-11] MEDS: Potassium Chloride 20 MEQ TAB PO SCH (09:55)
[2019-01-11] MEDS: Dronedarone HCl 400 MG TAB PO SCH (09:55)
[2019-01-11 11:31] LABS: Free T4 (Free Thyroxine) 1.35 ng/dL (0.70-1.48)
[2019-01-11 12:10] LABS: Thyroid Stimulating Hormone 0.0081 uIU/mL (0.35-4.94)
--- NOTE | 2019-01-11 12:16 | PRG ---
DATE OF SERVICE: 01/11/2019 Ms. Bailey is pleasant, alert, and talkative this morning. She was seen in consultation by the Hem-Onc team and we appreciate their input. They feel that we can continue her workup for the leukopenia and thrombocytopenia, which is improving as an outpatient. We are awaiting SNF placement. Job ID: [id number]
[2019-01-11 13:37] VITALS: BMI 18.9
[2019-01-11 16:41] LABS: ANA Symphony (Qualitative) Negative (Negative); ANA Symphony (Quantitative) 0.2 Ratio (< 0.7 Negative); CCP IgG Antibody 0.6 EliAU/mL (<7 Negative); EliA RAS New Method **** NEW METHOD ****; Rheumatoid Factor IgA Antibody 5.5 IU/mL (<14 Negative); Rheumatoid Factor IgM Antibody 3.1 IU/mL (<3.5 Negative); dsDNA IgG Antibody 2.7 IU/mL (<10 Negative)
[2019-01-12 08:12] VITALS: BP 164/72; TEMP 98.1
[2019-01-12] MEDS: Potassium Chloride 20 MEQ TAB PO SCH (08:19)
[2019-01-12] MEDS: Midodrine HCl 5 MG TAB PO SCH (08:19)
[2019-01-12] MEDS: Dronedarone HCl 400 MG TAB PO SCH (08:20)
[2019-01-12] MEDS: Enoxaparin Sodium 40 MG/0.4 ML SYRINGE SC SCH (08:20)
[2019-01-12] MEDS: Doxycycline 100 MG CAP PO SCH (08:20)
--- NOTE | 2019-01-12 14:39 | EKG ---
Test Reason : WEAKNESS Blood Pressure : / mmHG Vent. Rate : 142 BPM Atrial Rate : 122 BPM P-R Int : 000 ms QRS Dur : 088 ms QT Int : 272 ms P-R-T Axes : 000 -29 138 degrees QTc Int : 418 ms Atrial fibrillation with rapid ventricular response with premature ventricular or aberrantly conducte d complexes Nonspecific ST and T wave abnormality , probably digitalis effect Abnormal ECG Confirmed by TEOFILO AGUILAR DO ([id number]), telegraph editor LUIGI CALLEJAS ([id number]) on 01/12/2019 2:38:32 PM Referred By: Confirmed By:TEOFILO AGUILAR DO
--- NOTE | 2019-01-14 03:07 | DIS ---
DATE OF ADMISSION: 01/07/2019 DATE OF DISCHARGE: 01/12/2019 RESIDENT: Dennise Chicas MD. ADMITTING ATTENDING: Dr. Farah DISCHARGE ATTENDING: Dr. Washington CONSULTATIONS: 1. Cardiology. 2. Hematology/Oncology. PROCEDURES: EKG, chest x-ray, echocardiogram. PRIMARY DIAGNOSIS: Atrial fibrillation with rapid ventricular response. SECONDARY DIAGNOSES: 1. Systemic inflammatory response syndrome. 2. Leukopenia. 3. Thrombocytopenia. 4. History of atrial flutter s/p ablation 5. Hypokalemia, resolved 6. Hyponatremia, resolved 7. Dementia, chronic. 8. Hypotension, chronic. 9. Hypothyroidism. 10. Protein calorie malnutrition. DISCHARGE MEDICATIONS: 1. Doxycycline 100 mg p.o. b.i.d. for 7 days. 2. Dronedarone 400 mg p.o. b.i.d. with meals. 3. Potassium chloride 40 mEq p.o. daily with meals. 4. Midodrine 5 mg p.o. t.i.d. 5. Memantine 10 mg p.o. b.i.d. 6. Acetaminophen 500 mg p.o. q.6h p.r.n. DISCONTINUED MEDICATION: Levothyroxine 100 mcg daily. HISTORY OF PRESENT ILLNESS AND HOSPITAL COURSE: This patient is a pleasant 83-year-old female who presented with her at the emergency department. Her reported the patient had a decreased p.o. intake and that the patient had collapsed to her knees and had been very weak since Monday. and patient report, she has been sweating and feeling feverish at home. EKG on admission showed atrial fibrillation with rapid ventricular response. The patient notes chronic constipation and chronic urinary incontinence. The patient had seen Dr. Gutierrez a data management consultant for her history of atrial flutter in the past. He recently stopped her Eliquis due to dementia and risk of falls. The patient recently started seeing a neurologist for her dementia. reports patient had been having bouts of forgetfulness. The patient received vancomycin and Zosyn and was started on amiodarone drip in the emergency department. The amiodarone drip was discontinued the following day , as pt was in sinus rhythm. Cardiology was consulted for new onset atrial fibrillation. They started dronedarone (Multaq) for control of her arrhythmia. Upon admission, the patient met SIRS criteria for leukopenia of 3.4 and tachycardia. Her tachycardia may have also been a result of her A-Fib, but it was not certain that AFib alone was the cause. The patient did have an elevated CRP of 14, LDH of 463, and low uric acid. Her blood culture and urine cultures were negative. Respiratory viral panel was negative. It was thought that her SIRS could have been caused by an atypical infection for which we had not tested for. Her TSH also was low at 0.04 and her free T4 was elevated at 1.9. Her levothyroxine was held, hence she was above therapeutic values. Patient did have fevers up to 102.7 F on hospital days 2 and 3. Her WBC also decreased. Empiric antibiotic therapy was changed from Zosyn, suspicious for UTI to doxycycline to cover for gram-positive infections and MRSA. After this change was made, the patient's leukopenia began to improve. On the day of discharge, her white blood count was 5.3, increased from a silvestre of 2.5. Her platelets were 82, which was increased from a silvestre of 53. The patient had bandemia of 42% bands on admission, which improved to 6% bands. Hematology and oncology were consulted for the leukopenia and thrombocytopenia. The Heme-Onc nurse practitioner visited the patient and recommended a repeat CBC as an outpatient in 2-3 weeks. The nurse practitioner was familiar with this patient as she sees them annually for breast cancer status post mastectomy of her left breast. Otherwise, the patient was in stable condition and was discharged to an inpatient rehab facility close to her home. DISCHARGE CONDITION: Stable. DISCHARGE INSTRUCTIONS: Location: To [facility] for inpatient rehabilitation. Diet: Regular with supplements of Ensure b.i.d. Activity: As tolerated. Fall precautions should be in place and walker available for use. Followup: Follow up with Hematology/Oncology in 2-3 weeks for repeat CBC. Follow up with PCP within 1 week. Also, patient should have a repeat BMP as her potassium was low during hospitalization. We have sent her with at least a 2 week supply of potassium to replace it. Job ID: [id number] [facility]
[2019-01-14 14:09] LABS: Cytoplasmic (C-ANCA) <1:20 titer (Neg:<1:20); Myeloperoxidase AutoAbs <9.0 U/mL (0.0-9.0); Perinuclear (P-ANCA) <1:20 titer (Neg:<1:20); Proteinase-3 AutoAbs Less than 3.5 U/mL (0.0-3.5)
--- NOTE | 2019-01-15 05:57 | PQF ---
SAP Pattern Lease Inspector Crystal Reports Winform PARISA Kenney SUZAN CAMARILLO [id number] CLINICAL DOCUMENTATION CLARIFICATION FORM: POST DISCHARGE Addendum to original discharge summary date: ____ Late entry note date: __ DATE: 01/15/2019 ATTN:SUZAN CAMARILLO Please exercise your independent, professional judgment in responding to the clarification form. Clinical indicators are provided on the bottom of this form for your review Please check appropriate box(s): Conflicting documentation was noted in the Medical Record, please clarify if patient is being treated/monitored for: [ ] Sepsis [ ] SIRS [ ] Other diagnosis [ ] Unable to determine For continuity of documentation, please document condition throughout progress notes and discharge summary. Thank You. CLINICAL INDICATORS - SIGNS / SYMPTOMS/ LABS - Systemic inflammatory response syndrome-DS, 01/12, Juan Francisco Morrissey MD - Sepsis - H&P, 01/08, Mindy Farah MD - Sepsis 2/2 suspected community acquired PNA- H&P, 01/08, Mindy Farah MD - Temp: afebrile, BP:102/74, HR:79, RR:24- 01/08, Mindy Farah MD - WBC:3.4L- 01/08, Mindy Farah MD RISK FACTORS - Atrial fibrillation with rapid ventricular response- DS, 01/12,Jua nFrancisco Morrissey MD - Hypotension Chronic-Ds, 01/12, Juan Francisco Morrissey MD - Leukopenia-DS, 01/12-Juan Francisco Morrissey MD TREATMENT -Zosyn.IV-MAR, 01/07 (This form is maintained as a part of the permanent medical record) 2014 [employer]. All Rights Reserved Mariusz Rowley [not provided] [not provided] MTDD
--- NOTE | 2019-01-15 22:27 | PQF ---
SAP Wood Milling Machine Operator Crystal Reports Winform PablitoPARISA SUZAN CAMARILLO [id number] [facility] [id number] CLINICAL DOCUMENTATION CLARIFICATION FORM: POST DISCHARGE Addendum to original discharge summary date: ____ Late entry note date: __ Date: 01/15/2019 ATTN: SUZAN CAMARILLO Please exercise your independent, professional judgment in responding to the clarification form. Clinical indicators are provided on the bottom of this form for your review Please check appropriate box(s): [ ] Protein Calorie Malnutrition: [ ] Mild [ ] Moderate [ ] Severe [ ] Other Malnutrition (please specify) __ [ ] Other diagnosis [ ] Unable to determine CLINICAL INDICATORS - SIGNS / SYMPTOMS / LABS - Protein calorie malnutrition-DS, 01/12, Juan Francisco Morrissey MD - Total protein: 5.8L-Laboratory, 01/07 - Albumin:3.3L-Laboratory, 01/07 - Collapsed to her knees and had been very week since monday-DS, 01/12, Juan Francisco Morrissey MD - BMI: 18.9-FNS assessment, 01/11 RISK FACTORS - [id number]-JY, 01/12, Juan Francisco Morrissey MD - SIRS-DS, 01/12, Juan Francisco Morrissey MD TREATMENT: - Sodium chloride.IV-MAR, 01/07 - Ensure Enlive-FNS assessment 01/11 Moderate Malnutrition (in acute illness) Energy Intake: <75% of estimated energy requirement for > 7 days Weight Loss: 1-2%/1 week; 5%/ 1 month; 7.5%/3 months Other: mild body fat loss; mild muscle mass loss; mild fluid accumulation; Severe Malnutrition (in acute illness) Energy Intake: < 50% of estimated energy requirement for > 5 days Weight Loss: >1-2%/1 week; >5%/1 month; >7.5%/3 months Other: moderate body fat loss; moderate muscle mass loss; moderate- severe fluid accumulation; measurably reduced geosciences professor strength Moderate Malnutrition (in chronic illness) Energy Intake: <75% of estimated energy requirement for >1 month Weight Loss: 5%/1 month; 7.5%/3 months; 10%/6 months; 20%/1 year Other: mild body fat loss; mild muscle mass loss; mild fluid accumulation Severe Malnutrition (in chronic illness) SAP Wood Milling Machine Operator Crystal Reports Winform ViewerEnergy Intake: <75% of estimated energy requirement for >1 month Weight Loss: >5%/1 month; >7.5%/3 months; >10%/6 months; >20%/1 year Other: severe body fat loss; severe muscle mass loss; severe fluid accumulation ; measurably reduced geosciences professor strength (This form is maintained as a part of the permanent medical record) 2014 [employer]. All Rights Reserved Mariusz Rowley [not provided] [not provided] JO
== END 2019-01-12 09:45 | DRG 309 ==
LOC: ERS 11:14 → OBSVTOIN 15:35 → 2NO 15:35
PROVIDERS: ADMIT Family Medicine; ATTEND Family Medicine
DX: I48.91 Unspecified atrial fibrillation (principal); E87.1 Hypo-osmolality and hyponatremia; E46 Unspecified protein-calorie malnutrition; R65.10 Systemic inflammatory response syndrome (SIRS) of non-infectious origin without acute organ dysfunction; Z68.1 Body mass index [BMI] 19.9 or less, adult; N39.0 Urinary tract infection, site not specified; E03.9 Hypothyroidism, unspecified; F03.90 Unspecified dementia, unspecified severity, without behavioral disturbance, psychotic disturbance, mood disturbance, and anxiety; I95.89 Other hypotension; Z96.641 Presence of right artificial hip joint; D69.6 Thrombocytopenia, unspecified; D72.819 Decreased white blood cell count, unspecified; M81.0 Age-related osteoporosis without current pathological fracture; K59.09 Other constipation; E87.6 Hypokalemia; Z90.12 Acquired absence of left breast and nipple; Z98.42 Cataract extraction status, left eye; Z98.41 Cataract extraction status, right eye; Z90.49 Acquired absence of other specified parts of digestive tract; Z88.8 Allergy status to other drugs, medicaments and biological substances; Z90.710 Acquired absence of both cervix and uterus; R40.2142 Coma scale, eyes open, spontaneous, at arrival to emergency department; R40.2242 Coma scale, best verbal response, confused conversation, at arrival to emergency department; R40.2362 Coma scale, best motor response, obeys commands, at arrival to emergency department; N39.498 Other specified urinary incontinence; D72.825 Bandemia
CPT/HCPCS: 36415; 51701; 71045; 80048; 80053; 80074; 81003; 81015; 83520; 83605; 83615; 83735; 84100; 84145; 84439; 84443; 84484; 84550; 85007; 85025; 85027; 85046; 85060; 85610; 85652; 85730; 86038; 86140; 86200; 86225; 86256; 87040; 87086; 87389; 87633; 93005; 93306; 96361; 96365; 96366; 99292; J0282; J1650; J2543; J3370; J3480; J3490; J7050; J7070

== ENCOUNTER 2021-07-03 10:08 | Emergency (ER) | payer OTHER, MEDICARE ==
[2021-07-03 12:13] LABS: Bilirubin Negative (Negative); Blood, Urine Negative (Negative); Clarity Hazy (Clear); Glucose, Urine (Dipstick) Normal (Negative); Ketone, Urine Negative (Negative); Leukocyte Negative Leu/uL (Negative); Nitrite Negative (Negative); Protein, Urine (Dipstick) Negative (Neg-Trace); Specific Gravity, Urine 1.009 (1.002-1.036); Urobilinogen Normal mg/dL (Less than 2)
== END 2021-07-03 12:45 | disposition home or self-care (01) ==
LOC: ERS 10:08
DX: S06.0X9A Concussion with loss of consciousness of unspecified duration, initial encounter (principal); S00.03XA Contusion of scalp, initial encounter; I48.91 Unspecified atrial fibrillation; W19.XXXA Unspecified fall, initial encounter
CPT/HCPCS: 70450; 72125; 81003; 93005